=== PATIENT | male | born 1945 | race Caucasian/White ===

== ENCOUNTER → 2021-05-18 11:02 | Outpatient (REF) | payer MEDICARE, SELFPAY | LOC: ANHLAB 11:02 | PROVIDERS: PCP Internal Medicine; Visit Provider Nurse Practitioner | DX: D22.9 Melanocytic nevi, unspecified (principal) | CPT/HCPCS: 88305 ==

== ENCOUNTER → 2021-12-30 10:42 | Outpatient (REF) | payer MEDICARE, SELFPAY | LOC: ANHLAB 10:42 | PROVIDERS: PCP Internal Medicine; Visit Provider Nurse Practitioner | DX: L98.9 Disorder of the skin and subcutaneous tissue, unspecified (principal) | CPT/HCPCS: 88305 ==

== ENCOUNTER 2022-02-04 00:30 | Day surgery (SDC) | payer MEDICARE, SELFPAY ==
[2022-01-24 15:54] VITALS: BMI 37.6
[2022-02-04 09:10] VITALS: BP 150/99; PULSE 89; RESP 18; TEMP 36.6; O2SAT 96; BMI 38.0
[2022-02-04] MEDS: LACTATED RINGERS 1,000 ML 150 ML IV CONT (09:42)
--- NOTE | 2022-02-04 09:59 | PM.IMHP ---
H&P: HPI History of Present Illness Date/Time: 02/04/22 09:59 Chief Complaint: Neoplasia screening. Narrative: This is a 76-year-old white male patient referred for colonoscopy. Patient states that his current weight appetite and bowel movements are normal. Patient denies abdominal pain. He has had no bleeding. Family history is noncontributory. In 2008 patient had a benign hyperplastic colon polyp removed. Most recent colonoscopy 2016 was unremarkable. Patient presents today on referral for neoplasia screening colonoscopy. Patient reports that he has a history of coronary artery disease. He recently had a screening echocardiogram for surveillance. Family history is noncontributory. Review of Systems Review of Systems: Review of systems is noncontributory. [facility] Family History Family History Father Malignant neoplasm of prostate Patient's father is Mother Family history of malignant neoplasm of breast in first degree relative Patient's mother is Sibling Family history of malignant neoplasm of breast in first degree relative Family history of malignant melanoma Family history of malignant neoplasm of skin Other Cerebrovascular accident Family history of cardiovascular disease Family history of kidney disease Hypertension Social History Social History Smoking status: Never smoker Second hand tobacco smoke exposure: No Alcohol intake: current Substance use: never Substance use type: does not use Living arrangements: with family Spiritual care concerns: No Meds Home Medications and Allergies Home Medications Medication Instructions Recorded Confirmed Type cholecalciferol (vitamin D3) 50 50 mcg PO DAILY 08/13/19 02/04/22 History mcg (2,000 unit) capsule multivitamin (Multiple Vitamins) 1 tablet PO DAILY 08/13/19 02/04/22 History nitroglycerin 0.4 mg sublingual 0.4 mg sublingual Q5M PRN Angina 08/13/19 02/04/22 History tablet potassium gluconate 595 mg (99 mg) 1,190 mg PO DAILY 08/13/19 02/04/22 History tablet carvedilol 12.5 mg tablet 12.5 mg PO Q12H 01/04/21 02/04/22 History chlordiazepoxide HCl 10 mg capsule 10 mg PO Q8H PRN anxiety #270 caps 05/18/21 02/04/22 Rx lisinopril 40 mg tablet 40 mg PO DAILY #90 tabs 12/06/21 05/27/22 Rx simvastatin 40 mg tablet 40 mg PO DAILY #90 tabs 08/16/21 02/04/22 Rx imipramine HCl 10 mg tablet 20 mg PO .hs #180 tabs 11/14/21 02/04/22 Rx apixaban 5 mg tablet (Eliquis) 5 mg PO BID 01/07/22 02/04/22 History aspirin 81 mg tablet,delayed 81 mg PO DAILY 01/07/22 02/04/22 History release (Adult Aspirin Regimen) sodium sul 1.479 gram-potas ch See Rx Instructions PO .COMPLEX 01/18/22 02/04/22 Rx 0.188 gram-magnes sul 0.225 gram #24 tabs tablet (Sutab) magnesium oxide 500 mg PO DAILY 01/24/22 02/04/22 History Allergies Allergy/AdvReac Type Severity Reaction Status Date / Time sulfamethoxazole Allergy Intermediate HIVES Verified 02/04/22 09:19 trimethoprim Allergy Mild Rash Verified 02/04/22 09:19 prednisone AdvReac Severe Cramping Verified 02/04/22 09:19 of the Muscles Vital Signs Vital Signs - 24 hr 02/04/22 09:10 Temperature 97.8 F Pulse Rate 89 Respiratory Rate 18 Blood Pressure 150/99 H Pulse Oximetry 96 Oxygen Delivery Room Air Exam Narrative: Physical exam reveals patient to be alert. Vital signs stable. HEENT exam is unremarkable. Patient is anicteric. Lungs are clear to auscultation and percussion. Heart is without murmur or extra sounds. Abdominal exam bowel sounds are present soft nontender with no organomegaly. Digital external rectal exam is normal. Assessment and Plan Assessment and plan (1) Encounter for screening colonoscopy: Code(s): Z12.11 - Encounter for screening for malignant neoplasm of colon Status: Acute
--- NOTE | 2022-02-04 10:14 | WPDANESEPPF ---
Anes - Initial Pre Proc Eval Procedure: Operation Date: 02/04/22 10:30 Proposed Procedures p Screening Colonoscopy - Ross Nettles MD Date/Time: 02/04/22 10:14 Surgeon: Ross Nettles MD Pre Op Diagnosis: hx of colon polyps Patient Data Age: 76 Gender: M Height: 1.8 m Weight: 123.7 kg Last Vital Signs Temp 97.8 F 02/04/22 09:10 Pulse 89 02/04/22 09:10 Resp 18 02/04/22 09:10 BP 150/99 H 02/04/22 09:10 Pulse Ox 96 02/04/22 09:10 O2 Del Method Room Air 02/04/22 09:10 Allergies Allergy/AdvReac Type Severity Reaction Status Date / Time sulfamethoxazole Allergy Intermediate HIVES Verified 02/04/22 09:19 trimethoprim Allergy Mild Rash Verified 02/04/22 09:19 prednisone AdvReac Severe Cramping Verified 02/04/22 09:19 of the Muscles Home Medications Medication Instructions Recorded Confirmed Type cholecalciferol (vitamin D3) 50 50 mcg PO DAILY 08/13/19 02/04/22 History mcg (2,000 unit) capsule multivitamin (Multiple Vitamins) 1 tablet PO DAILY 08/13/19 02/04/22 History nitroglycerin 0.4 mg sublingual 0.4 mg sublingual Q5M PRN Angina 08/13/19 02/04/22 History tablet potassium gluconate 595 mg (99 mg) 1,190 mg PO DAILY 08/13/19 02/04/22 History tablet carvedilol 12.5 mg tablet 12.5 mg PO Q12H 01/04/21 02/04/22 History chlordiazepoxide HCl 10 mg capsule 10 mg PO Q8H PRN anxiety #270 caps 05/18/21 02/04/22 Rx lisinopril 40 mg tablet 40 mg PO DAILY #90 tabs 08/16/21 02/04/22 Rx simvastatin 40 mg tablet 40 mg PO DAILY #90 tabs 08/16/21 02/04/22 Rx imipramine HCl 10 mg tablet 20 mg PO .hs #180 tabs 11/14/21 02/04/22 Rx apixaban 5 mg tablet (Eliquis) 5 mg PO BID 01/07/22 02/04/22 History aspirin 81 mg tablet,delayed 81 mg PO DAILY 01/07/22 02/04/22 History release (Adult Aspirin Regimen) sodium sul 1.479 gram-potas ch See Rx Instructions PO .COMPLEX 01/18/22 02/04/22 Rx 0.188 gram-magnes sul 0.225 gram #24 tabs tablet (Sutab) magnesium oxide 500 mg PO DAILY 01/24/22 02/04/22 History Patient hx anesthesia problems: none Family hx anesthesia problems: none Results Review: All pre-operative results and documents have been reviewed as part of the pre-operative evaluation. [facility] Family History Family History Father Malignant neoplasm of prostate Patient's father is Mother Family history of malignant neoplasm of breast in first degree relative Patient's mother is Sibling Family history of malignant neoplasm of breast in first degree relative Family history of malignant melanoma Family history of malignant neoplasm of skin Other Cerebrovascular accident Family history of cardiovascular disease Family history of kidney disease Hypertension Social History Social History Smoking status: Never smoker Second hand tobacco smoke exposure: No Alcohol intake: current Substance use: never Substance use type: does not use Living arrangements: with family Spiritual care concerns: No Anes - Eval Final PreProcedure Day of Procedure 02/04/22 10:14 Patient weight: obese Heart: regular rate and rhythm Lungs: clear to auscultation Airway: Mallampati scale class II Neurological: alert and oriented Last oral intake: >/= 8 hours ASA classification: III Emergent: no Anesthetic plan: proceed Anesthesia type and monitoring: general GIVS and standard monitoring Results Review: All pre-operative results and documents have been reviewed as part of the pre-operative evaluation. Informed Consent: The patient's anesthetic plan and its attendant risks and benefits were discussed with the patient/family/POA. Questions were solicited and answers provided to the satisfaction of the patient/family/POA.
[2022-02-04 10:26] VITALS: BP 130/82; PULSE 76; RESP 25; O2SAT 95
[2022-02-04 10:36] VITALS: BP 119/76; PULSE 77; RESP 20; O2SAT 96
[2022-02-04 10:46] VITALS: BP 118/85; PULSE 71; RESP 20; O2SAT 96
== END 2022-02-04 10:53 | disposition home or self-care (01) ==
PROVIDERS: PCP Internal Medicine; Visit Provider Internal Medicine Gastroenterology
PROC: 0DJD8ZZ Inspection of Lower Intestinal Tract, Via Natural or Artificial Opening Endoscopic (ICD-10-PCS; CPT 45378; principal; 2022-02-04 10:30)
DX: Z12.11 Encounter for screening for malignant neoplasm of colon (principal); K64.8 Other hemorrhoids; E66.9 Obesity, unspecified; Z68.38 Body mass index [BMI] 38.0-38.9, adult; I25.10 Atherosclerotic heart disease of native coronary artery without angina pectoris
CPT/HCPCS: G0121; J2704; J7120

== ENCOUNTER 2022-06-30 07:00 | Outpatient (NON) | payer MEDICARE, SELFPAY | END 2022-06-30 07:01 | disposition home or self-care (01) | PROVIDERS: PCP Internal Medicine; Visit Provider Nurse Practitioner | DX: C44.719 Basal cell carcinoma of skin of left lower limb, including hip (principal) | CPT/HCPCS: 88305 ==

== ENCOUNTER → 2022-07-18 11:27 | Outpatient (CLI) | payer MEDICARE, SELFPAY ==
--- NOTE | ~2022-07-18 | XR_ITS ---
EXAMINATION: XR chest 2V DATE: 07/18/2022 11:39 INDICATION: 2 weeks of cough TECHNIQUE: frontal and lateral views of the chest were obtained. COMPARISON: Chest radiograph dated 12/24/2018 FINDINGS: The lungs are clear with no focal airspace opacities, pulmonary edema, pleural effusion or pneumothor ax. The cardiomediastinal silhouette is normal. No bridging osteophytes anteriorly across much of the visualized mid to lower thoracic spine which could be related to either diffuse idiopathic skeletal hyperostosis (DISH) or ankylosing spondylitis. IMPRESSION: 1. No acute cardiopulmonary disease. Reviewed, dictated and finalized at location A. [employer]
== END ==
PROVIDERS: PCP Internal Medicine; Visit Provider Internal Medicine
DX: R05.9 Cough, unspecified (principal)
CPT/HCPCS: 71046

== ENCOUNTER 2022-08-01 14:01 | Outpatient (NON) | payer MEDICARE, SELFPAY | END 2022-08-01 14:02 | disposition home or self-care (01) | LOC: ANHLAB 14:01 | PROVIDERS: PCP Internal Medicine; Visit Provider Nurse Practitioner | DX: C44.719 Basal cell carcinoma of skin of left lower limb, including hip (principal) | CPT/HCPCS: 88305; 88331 ==

== ENCOUNTER → 2023-03-20 10:55 | Outpatient (CLI) | payer MEDICARE, SELFPAY ==
--- NOTE | ~2023-03-20 | XR_ITS ---
AP and lateral views of the right hip Clinical history: Pain Findings: No acute fracture or dislocation is seen. Osseous alignment is anatomic. There is mild dege nerative change of the right hip joint.. Soft tissues are unremarkable. Impression: Mild degenerative change of the right hip joint. Reviewed, dictated and finalized at [facility]. Impression: Mild degenerative change of the right hip joint.
== END ==
PROVIDERS: PCP Nurse Practitioner Family; Visit Provider Nurse Practitioner Family
DX: M25.551 Pain in right hip (principal)
CPT/HCPCS: 73502

== ENCOUNTER → 2023-03-30 10:29 | Outpatient (CLI) | payer MEDICARE, SELFPAY ==
--- NOTE | ~2023-03-30 | MR_ITS ---
MRI of the lumbar spine Clinical History: Radiculopathy Technique: Axial T2-weighted images, and sagittal T1-weighted, T2-weighted, and T2 fat-sat images wer e acquired. Findings: There is no acute fracture or subluxation of the lumbar spine. Vertebral bodies maintain no rmal height and alignment. Intraosseous hemangioma present in the L5 vertebral body. At L1-L2, there is moderate degenerative disc narrowing without significant disc bulge or herniation. There is mild facet arthropathy. No central canal stenosis or definite neural foraminal narrowing. At L2-L3, there is mild degenerative disc narrowing. There is minimal disc bulge with mild to moderat e facet arthropathy. No central canal stenosis. There is minimal bilateral neural foraminal narrowing . At L3-L4, there is diffuse disc bulge and advanced facet arthropathy, which result in severe spinal c anal stenosis/thecal sac compression focally. There is moderate to advanced left neural foraminal isela rowing, and severe right neural foraminal narrowing. At L4-L5, diffuse disc bulge and severe facet arthropathy result in severe spinal canal stenosis/thec al sac compression. There is associated moderate bilateral neural foraminal narrowing, left worse mitchell n right. At L5-S1, there is minimal disc bulge with severe facet arthropathy. No spinal canal stenosis or defi nite neural foraminal narrowing. Paravertebral soft tissues are unremarkable. Impression: Severe degenerative spondylosis at L3-L4 and L4-L5, as detailed above. Mild degenerative changes the remainder of the lumbar spine, as above. Reviewed, dictated and finalized at [facility]. Impression: Severe degenerative spondylosis at L3-L4 and L4-L5, as detailed above. Mild degenerative changes the remainder of the lumbar spine, as above.
== END ==
PROVIDERS: PCP Internal Medicine; Visit Provider Nurse Practitioner Family
DX: M54.16 Radiculopathy, lumbar region (principal); M43.06 Spondylolysis, lumbar region
CPT/HCPCS: 72148

== ENCOUNTER 2025-01-14 00:17 | Day surgery (SDC) | payer MEDICARE, SELFPAY ==
[2024-12-27 11:00] VITALS: BMI 39.0
--- NOTE | 2024-12-27 11:14 | PC.NURSE ---
Report to the Outpatient Waiting Room, entrance under the green pavilion located off [facility], at time __0850am on date __01/14/25 . Planned Procedure Time: _10:50am .? Time changes happen often and if your time is changed the preop area will call you the afternoon before. - You and your visitor will be asked to self-screen and do not enter if you have any COVID symptoms. Please call surgeon if you need to reschedule. - A mask is optional within the hospital at this time. Patients may have No food or drink from midnight until time of surgery and no smoking, or chewing tobacco (or any form of nicotine). No chewing gum, candy or mints. Take only the following medications with a SIP of water on the morning of surgery: ____Amlodipine and Coreg, and Chlordiazepoxide if needed DO NOT STOP ANY OF YOUR OTHER PRESCRIPTION MEDICATIONS PRIOR TO SURGERY EXCEPT THE FOLLOWING Hold all vitamins and supplements for 3 days per anesthesiologist.Date to take last dose____01/10/25 Medications to discontinue per physician BABY ASPIRIN for 5 days prior and [address] JULES Date to take last dose 01/08/25 Please no make-up, nail portuguese, hairspray, perfume, deodorant, or body powder the day of surgery.? No jewelry (including any body piercings) or valuables the day of surgery, leave them at home.? Please take a shower or bath the night before, or the morning of, surgery with an antibacterial soap.? Wear comfortable, loose fitting clothing.? - Jewelry must be removed prior to entering the operating room.? Rings and piercings that are not removed may be cut off. - The hospital will not accept responsibility for valuables.? - Please leave all valuables, including medications, at home the day of surgery. If you are going home after surgery, a licensed jitney driver must drive you home.? - NO public transportation without another adult if you receive anesthesia. - We recommend that an adult stay with you for 24 hours following discharge. - We also recommend that you do not drive, make important decision, drink alcoholic beverages, or take any drugs that were not prescribed by your health care provider for at least 24 hours after your discharge time. Follow any additional instructions given to you from your surgeon. Telephone instructions given to __Patient and asked if any additional questions and then verbalized understanding. Patient advised to call surgeon office or pre surgery nurse liaison [phone] if any additional questions.
[2025-01-14] VITALS (7 sets, daily range): BP systolic 119–141; BP diastolic 74–90; PULSE 67–82; RESP 10–17; TEMP 36.6–37; O2SAT 97–100
--- NOTE | ~2025-01-14 | XR_ITS ---
EXAMINATION: XR fluoroscopy no charge DATE: 01/14/2025 10:30 CDT INDICATION: MILD CONSUELO L3-4,L4-5 . TECHNIQUE: 12 fluoroscopic images and one cine clip of the lumbar spine were obtained during bilatera l L3-4 and L4-5 minimally invasive lumbar decompression, performed by Morales Westfall MD. I was not present during the procedure. Fluoroscopy exposure time was 4 minutes 13 seconds. Air Kerma 303.57 mG y. DAP 36.398 mGym2. COMPARISON: None FINDINGS/IMPRESSION: Fluoroscopic documentation of bilateral L3-4 and L4-5 minimally invasive lumbar decompression. Please refer to the operative note for complete procedural details. Reviewed, dictated and finalized at location K.
--- OUTSIDE RECORDS SUMMARY | 2025-01-14 00:20 | XMS_ITS | Encounter Summary ---
Author Organization [facility] Address [address] [address] Care Team Providers Care Cheese Wrapper Name Role Phone Moises Strickland Primary Care Provider [phone] Encounter Details Date Type Department Care Team (Late st Contact Info) Description 01/09/2019 Lab Requisition [facility] Care D[facility] [address] [place] [id number] Markus Schroeder MD [address] [id number] Social History Tobacco Use Types Packs/Day Years Used Date Smoking Tobacco: Never Smokeless Tobacco: Never Alcohol Use Standard Drinks/Week Comments Yes 0 (1 standard drink = 0.6 oz pur e alcohol) Sex and Gender Information Value Date Recorded Sex Assigned at Not on file 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 [employer] Gender Identity Not on file Sexual Orientation Not on file documented as of this encounter Plan of Treatment Not on file documented as of this encounter Procedures Procedure Name Priority Date/Time Associated Diagnosis Comments DERMPATH SLIDE CONSULT Routine 01/09/2019 12:00 AM CDT documented in this encounter Results * DERMPATH SLIDE CONSULT (01/09/2019 12:00 AM CDT) Case Report Dermatopathology Report Case: [id number] Authorizing Provider: Markus Schroeder MD Collected: 01/09/2019 12:00 AM Pathologist: Shanel Cochran MD Received: 01/09/2019 08:37 AM Specimen: Slide(s), Posterior scalp, OSC# [id number] 12:31 PM T DERMATOPATHOLOGY LABORATORY Final Diagnosis Specimen A. 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 Markus Schroeder, a consult will be performed on 4 slide(s) and 1 block(s) labeled [id number]. Melanoma in situ, extending to peripheral margin. All slides returned. Any additional sections, special stains or immunohistochemical stains performed by our laboratory will be kept here on file. 12:31 PM T DERMATOPATHOLOGY LABORATORY Microscopic Description Specimen A. Slide(s), Posterior scalp, OSC# [id number]: There is a proliferation of melanocytes distributed in an irregular pattern along the dermal-epidermal junction with single cells predominating. Significant extension down the follicular epithelium and focal areas of confluence are present. This melanocytic proliferation is highlighted on the provided Melan-A stain. This lesion is present at the margin of the specimen. 12:31 PM T DERMATOPATHOLOGY LABORATORY Disclaimer An external and internal positive and negative controls are appropriate for the histochemical, immunohistochemical and immunofluorescence stain(s) in this case (if any), except where stated explicitly. The performance characteristics of the stain(s) cited in this report were developed and its performance characteristic determined by the Dermatopathology Laboratory at [facility], directed by Dr. Lida Cortez. These tests need not be, and therefore are not, approved by the [place] Food and Drug Administration. The tests are used for clinical purposes. Billing Codes Specimen Charges Stain Charges 98145 1 12:31 PM CDT DERMATOPATHOLOGY LABORATORY Embedded Images 12:31 PM CDT DERMATOPATHOLOGY LABORATORY Pathology/Cytolog y SLIDE / Unknown 01/09/2019 01/09/2019 8:37 AM CDT us Markus Schroeder MD LAB - PATHOLOGY/CYTOLOGY ORDER EJ Final Result DERMATOPATHOLOGY LABORATORY [facility] - Department of Dermatology [address] [place] [address], [facility] [phone] documented in this encounter Visit Diagnoses Not on filedocumented in this encounter Care Teams Cheese Wrapper Relationship Specialty Start Date End Date Moises Strickland DO [address] [facility] [address] [place] [address] PCP - General 04/10/17 documented as of this encounter
--- OUTSIDE RECORDS SUMMARY | 2025-01-14 00:20 | XMS_ITS | Encounter Summary ---
Author Organization [facility] Address [facility] [place] [address] Care Team Providers Care Director Peoples[employer] Name Role Phone Moises Strickland MD Primary Care Provider [phone] Sebastian Nur DO Primary Care Provider [phone] Encounter Details Date Type Department Care Team (Late Contact Info) Description 02/02/2022 [employer] Message Enc [facility] [address] [address] [employer], [facility] Provider echo results Social History Tobacco Use Types Packs/Day Years Used Date Smoking Tobacco: Former Cigarettes Smokeless Tobacco: Never Alcohol Use Standard Drinks/Week Comments Yes 0 (1 standard drink = 0.6 oz pur e alcohol) occasionally AUDIT-C Answer Date Recorded Q1: How often do you have a drink containing alc ohol? Monthly or less 07/13/2020 Average Number of Drinks Not on file 020 Frequency of Binge Drinking Not on file 10/2019 Sex and Gender Information Value Date Recorded Sex Assigned at Not on file Legal Sex Male 4:39 PM CDT Gender Identity Not on file Sexual Orientation Not on file COVID-19 Exposure Response Date Recorded In the last 10 days, have yo u been in contact with someone who was confirmed or suspected to have Coronavirus/COVID-19? No / Unsure 02/01/2022 1:48 PM CDT documented as of this encounter Plan of Treatment Upcoming Encounters Date Type Department Care Team (Late Contact Info) Description 03/03/2025 10:30 AM CDT Office Visit [facility] [place] [address] Eboni Kidd MD [address] [facility] [address] [place] [address] documented as of this encounter Visit Diagnoses Not on filedocumented in this encounter Care Teams Director [employer]oplesoft Relationship Specialty Start Date End Date Moises Strickland MD [address] [place] [address] [place], [place] [id number] PCP - General INTERNAL MEDICINE 06/08/20 03/10/24 Sebastian Nur DO [address] [facility] [address] [employer], [place] [id number] PCP - General INTERNAL MEDICINE 03/11/24 documented as of this encounter
--- OUTSIDE RECORDS SUMMARY | 2025-01-14 00:20 | XMS_ITS | Encounter Summary ---
Author Organization [facility] Address [address] [facility] [place] [address] Care Team Providers Care Automotive Production Worker Name Role Phone Moises Strickland Primary Care Provider [phone] Encounter Details Date Type Department Care Team (Late st Contact Info) Description 07/19/2018 Lab Requisition [facility] Care DermPath Lab [address] [facility] [place] [id number] Matias Curry MD [place] [address] Social History Tobacco Use Types Packs/Day Years Used Date Smoking Tobacco: Never Smokeless Tobacco: Never Alcohol Use Standard Drinks/Week Comments Yes 0 (1 standard drink = 0.6 oz pur e alcohol) Sex and Gender Information Value Date Recorded Sex Assigned at Not on file Legal Sex Male 5:27 PM CENTRAL STORES ATTENDANT Gender Identity Not on file Sexual Orientation Not on file documented as of this encounter Plan of Treatment Not on file documented as of this encounter Procedures Procedure Name Priority Date/Time Associated Diagnosis Comments DERMATOPATHOLOGY Routine 07/18/2018 12:0 0 AM CENTRAL STORES ATTENDANT documented in this encounter Results * DERMATOPATHOLOGY (07/18/2018 12:00 AM CENTRAL STORES ATTENDANT) Case Report Dermatopathology Report Case: [id number] Authorizing Provider: Matias Curry MD Collected: 07/18/2018 12:00 AM Pathologist: Bessy Hugo MD Received: 07/19/2018 12:03 PM Specimens: A) - Skin, left ant lat base of neck B) - Skin, left radial dist ext FA C) - Skin, right mid parasonial back 1:57 PM [facility] DERMATOPATHOLOGY [facility]ORATORY Addendum 1 A MART-1/Melan A was performed at the time of diagnosis on Specimen C and highlights the lesion and pagetoid spread. 1:57 PM CENTRAL STORES ATTENDANT DERMATOPATHOLOGY LABORATORY Addendum electronically signed by Bessy Hugo MD on 07/26/2018 at 1:57 PM Final Diagnosis Specimen A. SKIN, left ant lat base of neck: SEBORRHEIC KERATOSIS, MACULAR (L82.1) (see microscopic description) Specimen B. SKIN, left radial dist ext FA: BASAL CELL CARCINOMA, NODULAR TYPE, ERODED (C44.619) Specimen C. SKIN, right mid parasonial back: MALIGNANT MELANOMA, LENTIGINOUS TYPE (C43.59) PRESENT AT MARGIN (see microscopic description and synoptic report) 1:57 PM [facility] DERMATOPATHOLOGY [facility]ORATORY Clinical History A: R/O dys nevus, lentigo. B: R/O SCC, HAK. C: R/O dys nevus, lentigo. 1:57 PM [facility] DERMATOPATHOLOGY [facility]ORAT[facility] Gross Description Specimen A: Received is one formalin filled container labeled with the patient's name and designated left ant lat base of neck. The specimen consists of a shave biopsy measuring [id number]. Jar 0. Specimen B: Received is one formalin filled container labeled with the patient's name and designated left radial dist ext FA. The specimen consists of a shave biopsy measuring [id number]. Jar 0. Specimen C: Received is one formalin filled container labeled with the patient's name and designated right mid parasonial back. The specimen consists of a shave biopsy measuring [id number]. Jar 0. 1:57 PM CENTRAL STORES ATTENDANT DERMATOPATHOLOGY LABORATORY Microscopic Description Specimen A. SKIN, left ant lat base of neck: Sections show a relatively broad, flat proliferation of small keratinocytes. The surface is gently papillated, and there is increased basilar pigmentation. MART-1/Melan-A staining highlights regular periodicity of melanocytes along the basal layer of the epidermis. Specimen B. SKIN, left radial dist ext FA: The epidermis is eroded. Within the dermis there are aggregates of basaloid cells with a high nuclear to cytoplasmic ratio and peripheral palisading. Specimen C. SKIN, right mid parasonial back: There is a proliferation of melanocytes distributed in an irregular pattern along the dermal-epidermal junction with single cells predominating, extension down the follicular epithelium, and focal areas of confluence. In the dermis there are irregular nests of cytologically similar melanocytes. This lesion is present at the margin of the specimen wit in situ disease and invasive disease seen at the a lateral margin and in situ disease seen at the base of the specimen. 8 1:57 PM [facility] DERMATOPATHOLOGY [facility]ORATORY Disclaimer An external and internal positive and negative controls are appropriate for the histochemical, immunohistochemical and immunofluorescence stain(s) in this case (if any), except where stated explicitly. The performance characteristics of the stain(s) cited in this report were developed and its performance characteristic determined by the Dermatopathology Laboratory at [facility]. These tests need not be, and therefore are not, approved by the [place] Food and Drug Administration. The tests are used for clinical purposes. Billing Codes Specimen Charges Stain Charges 05233 51983 12702 1 1 1 12503 23490 1 1 8 1:57 PM [facility] DERMATOPATHOLOGY [facility]OR[facility] Embedded Images 8 1:57 PM [facility] DERMATOPATHOLOGY [facility]OR[facility]ORY Synoptic Report MELANOMA OF THE SKIN: Biopsy (Melanoma Bx - C) SPECIMEN Procedure: Biopsy, shave Specimen Laterality: Right TUMOR Tumor Site: Skin of trunk: right mid paraspinal back : Histologic Type: Lentigo maligna melanoma Maximum Tumor (Breslow) Thickness in Millimeters (mm): At least: 0.4 Millimeters (mm) : Tumor is present at the surgical margin; therefore, the final depth may exceed the current one. Tumor Extent: Macroscopic Satellite Nodule(s): Not identified Ulceration: Not identified Anatomic (Joshua) Level: II (melanoma present in but does not fill and expand papillary dermis) Accessory Findings: Mitotic Rate: None identified Microsatellite(s): Not identified Lymphovascular Invasion: Not identified Neurotropism: Not identified Tumor-Infiltrating Lymphocytes: Present, nonbrisk Tumor Regression: Not identified MARGINS: Peripheral Margins: Involved by invasive melanoma Deep Margin: Uninvolved by invasive melanoma PATHOLOGIC STAGE CLASSIFICATION (pTNM, AJCC 8th Edition): Primary Tumor (pT): pT1a 8 1:57 PM CENTRAL STORES ATTENDANT DERMATOPATHOLOGY LABORATORY Pathology/Cytology TISSUE SPECIMEN FROM SKIN / Unknown 07/18/2018 07/19/2018 12:03 PM CENTRAL STORES ATTENDANT Miscellaneous samples (specimen) TISSUE SPECIMEN FROM SKIN / Unknown 07/18/2018 07/19/2018 12:03 PM CENTRAL STORES ATTENDANT Miscellaneous samples (specimen) TISSUE SPECIMEN FROM SKIN / Unknown 07/18/2018 07/19/2018 12:03 PM CENTRAL STORES ATTENDANT us Matias Curry MD LAB - PATHOLOGY/CYTOLOGY ORD ERABLES Edited Result - Final DERMATOPATHOLOGY LABORATORY [facility] - Department of Dermatology [address] [place] [address] 5th Floor Lab [address] [phone] documented in this encounter Visit Diagnoses Not on filedocumented in this encounter Care Teams Automotive Production Worker Relationship Specialty Start Date End Date Moises Strickland DO [address] [facility] [address] [place] [address] PCP - General 04/10/17 documented as of this encounter
--- OUTSIDE RECORDS SUMMARY | 2025-01-14 00:20 | XMS_ITS | Encounter Summary ---
Author Organization [facility] Address [address] [facility] [place] [address] Care Team Providers Care Standard Machine Stitcher Name Role Phone Moises Strickland Primary Care Provider [phone] Encounter Details Date Type Department Care Team (Late st Contact Info) Description 08/30/[address] [facility] Care DermPath Lab [address] [facility] [place] [phone] Matias Curry MD [place] [address] Social History Tobacco Use Types Packs/Day Years Used Date Smoking Tobacco: Never Smokeless Tobacco: Never Alcohol Use Standard Drinks/Week Comments Yes 0 (1 standard drink = 0.6 oz pur e alcohol) Sex and Gender Information Value Date Recorded Sex Assigned at Not on file Legal Sex Male 5:27 PM LINUX KERNEL DEVELOPER Gender Identity Not on file Sexual Orientation Not on file documented as of this encounter Plan of Treatment Not on file documented as of this encounter Procedures Procedure Name Priority Date/Time Associated Diagnosis Comments DERMATOPATHOLOGY Routine 08/29/2018 12:0 0 AM LINUX KERNEL DEVELOPER documented in this encounter Results * DERMATOPATHOLOGY (08/29/2018 12:00 AM LINUX KERNEL DEVELOPER) Case Report Dermatopathology Report Case: [id number] Authorizing Provider: Matias Curry MD Collected: 08/29/2018 12:00 AM Pathologist: Bessy Hugo MD Received: 08/30/2018 12:40 PM Specimen: Skin, left upper chest below clavicle 8 12:15 PM [facility] DERMATOPATHOLOGY LABORATORY Final Diagnosis Specimen A. SKIN, left upper chest below clavicle: JUNCTIONAL MELANOCYTIC PROLIFERATION; NOT PRESENT AT MARGIN (D48.5) DERMAL SCAR (L90.5) (see microscopic description and comment) 8 12:15 PM [facility] DERMATOPATHOLOGY LABORATORY Clinical History Bx proven junctional melanocytic proliferation, [id number]. Check margins. 12:15 PM [facility] DERMATOPATHOLOGY [facility]ORATORY Gross Description Specimen A: Received is one formalin filled container labeled with the patient's name and designated left upper chest below clavicle.The specimen consists of an ellipse measuring [id number] and is oriented with the notch at the 12 o'clock position labeled on the requisition as 12 o'clock. The 12 to 6 o'clock margin is inked green. The 6 o'clock to 12 o'clock margin is inked black. The 12 o'clock tip is submitted in cassette 1. The 6 o'clock tip is submitted in cassette 2. The remainder of the ellipse is serially sectioned and submitted in cassettes 3-4. Jar 0. 12:15 PM [facility] DERMATOPATHOLOGY [facility]ORATORY Microscopic Description Specimen A. SKIN, left upper chest below clavicle: There are fibroblasts and collagen bundles oriented parallel to the skin surface with elongated blood vessels, some of which are oriented perpendicular to the skin surface consistent with a scar from the prior procedure. Lateral to the dermal scar there is a focal junctional melanocytic proliferation. There is a slight lentiginous proliferation of bland melanocytes between irregular nests. This lesion is not present at the sampled margin of the specimen. COMMENT: The prior case was reviewed in conjunction. While the melanocytic proliferation may represent focal residual lesion, I also considered an incident new lesion, which I favor to be benign based on the cytology. The proliferation appears to be excised in the plane of section examined. 12:15 PM [facility] DERMATOPATHOLOGY LABORATORY Disclaimer An external and internal positive and negative controls are appropriate for the histochemical, immunohistochemical and immunofluorescence stain(s) in this case (if any), except where stated explicitly. The performance characteristics of the stain(s) cited in this report were developed and its performance characteristic determined by the Dermatopathology Laboratory at [facility]. These tests need not be, and therefore are not, approved by the [place] Food and Drug Administration. The tests are used for clinical purposes. Billing Codes Specimen Charges Stain Charges 99290 1 8 12:15 PM LINUX KERNEL DEVELOPER DERMATOPATHOLOGY LABORATORY Embedded Images 8 12:15 PM LINUX KERNEL DEVELOPER DERMATOPATHOLOGY LABORATORY Pathology/Cytolog y TISSUE SPECIMEN FROM SKIN / Unknown 08/29/2018 08/30/2018 12:40 PM LINUX KERNEL DEVELOPER us Matias Curry MD LAB - PATHOLOGY/CYTOLOGY ORD ERABLES Final Result DERMATOPATHOLOGY LABORATORY [facility] - Department of Dermatology [address] [place] [address], 5th Floor Lab [address] [phone] documented in this encounter Visit Diagnoses Not on filedocumented in this encounter Care Teams Standard Machine Stitcher Relationship Specialty Start Date End Date Moises Strickland DO [address] [facility] [address] [facility] [address] [place] [address] PCP - General 04/10/17 documented as of this encounter
--- OUTSIDE RECORDS SUMMARY | 2025-01-14 00:20 | XMS_ITS | Encounter Summary ---
Author Organization [facility] Address [facility] [place] [address] Care Team Providers Care Health Program Specialist Name Role Phone Moises Strickland MD Primary Care Provider [phone] Sebastian Nur DO Primary Care Provider [phone] Encounter Details Date Type Department Care Team (Late Contact Info) Description 12/30/2021 Visible Measures Message Enc [facility] [address] [address] [employer], [facility] Provider doppler results Social History Tobacco Use Types Packs/Day [...] suspected to have Coronavirus/COVID-19? No / Unsure 12/30/2021 12:14 PM CDT documented as of this encounter Plan of Treatment Upcoming Encounters Date Type Department Care Team (Late Contact Info) Description 03/03/2025 10:30 AM CDT Office Visit [facility] [address] [facility] [place] [address] Eboni Kidd MD [address] [facility] [address] [place] [address] documented as of this encounter Visit Diagnoses Not on filedocumented in this encounter Care Teams Health Program Specialist Relationship Specialty Start Date End Date Moises Strickland MD [address] [place] [address] [place], [place] [phone] PCP - General INTERNAL MEDICINE 06/08/20 03/10/24 Sebastian Nur DO [address] [facility] [address] [place], [place] [id number] PCP - General INTERNAL MEDICINE 03/11/24 documented as of this encounter
--- OUTSIDE RECORDS SUMMARY | 2025-01-14 00:20 | XMS_ITS | Clinical Summary ---
Author Organization [facility] Address [address] [place] [address] Care Team Providers Care Midwife Name Role Phone Moises Strickland DO Primary Care Provider [phone] Source Comments [facility],non-owned Affiliates and Associated Physician Practices is amultiple site organization consisting of ambulatory clinics and hospital sitesin [place], [place], [place] and [place]. This disclosure is being madepursuant to the Care Everywhere program and may not contain all information available regarding this patient. Last updated 18.[facility] Allergies Active Allergy Reactions Criticality Noted Date Comments Sulfamethoxazole W-Trimethoprim Rash Medium 04/13 Medications * Be aware that medications may not be up to date on this document. Alwaysverify current medications with the patient. nitroGLYCERIN (NITROSTAT) 0.4 MG tablet Dissolve 0.4 mg under the tongue q5min PRN (Chest Pain). 05/10/2017 Active omeprazole (PRILOSEC) 20 MG capsule Take 20 mg by mouth BID. 05/10/2017 Active aspirin (ASPIRIN) 81 MG tablet Take 81 mg by mouth DAILY. 05/10/2017 Active triamcinolone acetonide (KENALOG) 0.1 % cream 1 04/10/2017 Active potassium gluconate 595 (99 K) MG tablet Take 1 tablet by mouth BID. 05/10/2017 Active simvastatin (ZOCOR) 40 MG tablet 3 04/10/2017 Active chlordiazePOXID E (LIBRIUM) 10 MG capsule Take 10 mg by mouth. 05/10/2017 Active Vitamin D3, cholecalciferol , 2000 UNITS tablet Take 2,000 Units by mouth DAILY. 05/10/2017 Active imipramine (TOFRANIL) 10 MG tablet 1 03/31/2017 Active metoprolol succinate XL 24hr (TOPROL XL) 50 MG tablet 0 02/25/2017 Active lisinopril (PRINIVIL; ZESTRIL) 20 MG tablet Take 20 mg by mouth DAILY. 3 04/10/2017 Active Family History Medical History Relation Name Comments Cancer - Skin, Melanoma Brother Relation Name Status Comments Brother Social History Tobacco Use Types Packs/Day Years Used Date Smoking Tobacco: Never Smokeless Tobacco: Never Alcohol Use Standard Drinks/Week Comments Yes 0 (1 standard drink = 0.6 oz pur e alcohol) Sex and Gender Information Value Date Recorded Sex Assigned at Not on file Legal Sex Male 5:27 PM SHIFT STACKER Gender Identity Not on file Sexual Orientation Not on file Last Filed Vital Signs Vital Sign Reading Time Taken Comments Blood Pressure 134/100 06/07/2017 8:52 AM CDT Pulse 81 06/07/2017 8:52 AM CDT Temperature - - Respiratory Rate - - Oxygen Saturation 97% 06/07/2017 8:52 AM CDT Inhaled Oxygen Concentration - - Weight 117.9 kg (260 lb) 06/07/2017 7:14 AM CDT Height 180.3 cm (5' 11 ) 06/07/2017 7:14 AM CDT Body Mass Index 36.26 06/07/2017 7:14 AM CDT Plan of Treatment Health Maintenance Due Date Last Done Comments DTAP/TDAP/TD VACCINES (1 - Tdap) 1964 PNEUMOCOCCAL VACCINE 50+ (1 of 1 - PCV) 1995 ZOSTER VACCINE (1 of 2) 1995 Respiratory Syncytial Virus (RSV) Vaccine Pt: or over 60 yrs (1 - 1-dose 75+ series) 2020 COVID-19 VACCINE ( - 2023-2 5 season) 2024 DEPRESSION SCREENING 09/11/2024 INFLUENZA VACCINE (Season Ended) 2025 HEPATITIS B VACCINE Aged Out No longe r eligible based on patient's age to complete this topic HIB VACCINE Aged Out No longer eligi ble based on patient's age to complete this topic HPV VACCINE Aged Out No longer eligi ble based on patient's age to complete this topic MENINGOCOCCAL (Group B) VACC INE SHARED DECISION-MAKING Aged Out No longer eligibl e based on patient's age to complete this topic MENINGOCOCCAL GROUPS A/C/Y/W VACCINE Aged Out No longer eligible b ased on patient's age to complete this topic Insurance [facility] MANAGED MEDICARE ADV Care Teams Midwife Relationship Specialty Start Date End Date Moises Strickland DO [address] [facility] [address] [place] [address] PCP - General 04/10/17
--- OUTSIDE RECORDS SUMMARY | 2025-01-14 00:20 | XMS_ITS | Encounter Summary ---
Author Organization [facility] Address [facility] [place] [address] Care Team Providers Care Pet Care Worker Name Role Phone Moises Strickland MD Primary Care Provider [phone] Sebastian Nur DO Primary Care Provider [phone] Encounter Details Date Type Department Care Team (Late st Contact Info) Description 10/05/2020 MyCDLCt Message Enc [facility] [address] [facility] [place] [address] Jim Cortes MD [address] [facility] [address] [place] [address] RE: Medication Questions Social History Tobacco Use Types Packs/Day Years Used Date Smoking Tobacco: Never Smokeless Tobacco: Never Alcohol Use Standard Drinks/Week Comments Yes 0 (1 standard drink = 0.6 oz pur e alcohol) AUDIT-C Answer Date Recorded Q1: How often [...] Encounters Date Type Department Care Team (Late st Contact Info) Description 03/03/2025 10:30 AM CDT Office Visit [facility] [address] [facility] [place] [address] Eboni Kidd MD [address] [facility] [address] [place] [address] documented as of this encounter Visit Diagnoses Not on filedocumented in this encounter Care Teams Pet Care Worker Relationship Specialty Start Date End Date Moises Strickland MD [address] [place] [address] [place] [address] PCP - General INTERNAL MEDICINE 06/08/20 03/10/24 Sebastian Nur DO [address] [facility] [address] [place], [place] [phone] PCP - General INTERNAL MEDICINE 03/11/24 documented as of this encounter
--- OUTSIDE RECORDS SUMMARY | 2025-01-14 00:20 | XMS_ITS | Clinical Summary ---
Author Organization [facility] Address [address] [place] [address] Care Team Providers Care Environmental Services Floor Tech Name Role Phone Sebastian Nur DO Primary Care Provider [phone] Allergies Active Allergy Reactions Criticality Noted Date Comments Dabigatran Etexilate Mesylate Diarrhea,GI Upset 11/26/2024 Gas n bloating Prednisone Other (see comment) 01/04/2021 Sulfamethoxazole Rash Low 07/13/2020 Reaction: Rash, Trimethoprim Rash Low 07/13/2020 Reaction: Rash, Medications simvastatin 40 MG tablet Take 1 tablet (40 mg total) by mouth daily. 05/17/2020 Active chlordiazePOXID E 10 MG capsule TAKE 1 CAPSULE BY MOUTH EVERY 8 HOURS NEEDED FOR ANXIETY 01/30/2020 Active imipramine 10 MG tablet Take 2 tablets (20 mg total) by mouth nightly at bedtime. at bedtime 05/11/2020 Active Cholecalciferol (VITAMIN D) 50 MCG (2000 UT) Tab Take 1 tablet (2,000 Units total) by mouth daily. Active Potassium Gluconate 595 (99 K) MG Tab Take 595 mg by mouth 2 (two) times daily. Active nitroglycerin 0.[address] 1 tablet (0.4 mg total) under the tongue every 5 (five) minutes as needed for Chest Pain. Active magnesium oxide 250 MG tablet Take 2 tablets (500 mg total) by mouth every evening. Active Multiple Vitamin (ONE-A-DAY 55 PLUS OR) Take 1 tablet by mouth daily. Active losartan (COZAAR) 100 MG tablet Take 1 tablet (100 mg total) by mouth daily. 01/30/2023 Active amLODIPine (NORVASC) 2.5 MG tablet TAKE 1 TABLET BY MOUTH EVERY DAY 90 tablet 1 11/04/2024 Active carvedilol (COREG) 25 MG tablet TAKE 1 TABLET BY MOUTH TWICE A DAY 180 tablet 1 11/04/2024 Active rivaroxaban (XARELTO) 20 MG Tab tablet Take 1 tablet (20 mg total) by mouth daily with supper. Take with food 30 tablet 3 11/26/2024 Active Active Problems Problem Noted Date Diagnosed Date Coronary stent patent 07/01/2022 PAF (paroxysmal atrial fibrillation) ([facility]) 02/02/2021 Pure hypercholesterolemia 07/13/2020 Obesity (BMI 30-39.9) 07/13/2020 Snoring 07/13/2020 Basal cell carcinoma (BCC) of right forearm 08/11 Melanoma in situ of back ([facility]) 12/24 Atherosclerosis of coronary artery 07/30/2014 Overview (12/30/2021): Coronary atherosclerosis Essential hypertension Myocardial infarction ([facility]) Resolved Problems Problem Noted Date Diagnosed Date Resolved Date Pain and swelling of lower leg, left 12/30/2021 08/26/2024 Swollen leg 10/12/2021 08/22/2024 Encounters Date Type Department Care Team Description 12/24/2024 Telephone [facility] [address] Eboni Kidd MD Surgical Clearance 11/25/2024 Telephone [facility] [address] [address] Eboni Kidd MD Medication 10/21/2024 [facility] [address] [address] Eboni Kidd MD Refill Request (AMLODIPINE) 10/21/2024 [facility] [address] [address] Shavonne Domínguez, [facility] Medication Information (Eliquis cost) from Last 3 Months Immunizations Immunization Administration Dates Next Due Fluad influenza vaccine, Troy drivalent (aIIV4), Inactivated, adjuvanted, preservative free, 0.5 mL,IM use 06/13/2019 Family History Medical History Relation Comments Heart Attack Brother 1 Open Heart Brother 1 Prostate Cancer Father Stroke Maternal Grandmother Breast Cancer Mother Relation Status Comments Brother 1 Alive Brother 2 Alive Father (Age 70) Maternal Grandfather (Age 88) Maternal Grandmother (Age 68) Mother (Age 59) Paternal Grandfather (Age 79) Paternal Grandmother (Age 75) Sister Alive Social History Tobacco Use Types Packs/Day Years Used Date Smoking Tobacco: Former Cigarettes Smokeless Tobacco: Never Tobacco Cessation:Counseling Given: Not Answered Alcohol Use Standard Drinks/Week Comments Yes 0 [...] Sign Reading Time Taken Comments Blood Pressure 142/92 08/26/2024 10:37 AM FARMWORKER VEGETABLE Pulse 81 08/26/2024 10:37 AM FARMWORKER VEGETABLE Temperature 36.6 C (97.8 F) 07/01/2022 12:22 PM CDT Respiratory Rate - - Oxygen Saturation 96% 08/26/2024 10:37 AM FARMWORKER VEGETABLE Inhaled Oxygen Concentration - - Weight 131.5 kg (290 lb) 08/26/2024 10:37 AM FARMWORKER VEGETABLE Height 177.8 cm (5' 10 ) 08/26/2024 10:37 AM FARMWORKER VEGETABLE Body Mass Index 41.61 08/26/2024 10:37 AM FARMWORKER VEGETABLE Plan of Treatment Upcoming Encounters Date Type Department Care Team (Late st Contact Info) Description 03/03/2025 10:30 AM CDT [facility] [address] [place] [address] Eboni Kidd MD Three [facility] [address] [place], [place] [id number] Health Maintenance Due Date Last Done Comments ASCVD Statin 1945 Hepatitis C 1963 DTaP, Tdap and Td Vaccines ( 1 - Tdap) 1964 Pneumococcal Vaccine: 50+ Ye ars (1 of 2 - PCV) 1964 Zoster Vaccines (1 of 2) 1995 Annual Medicare Wellness Visit 2010 RSV Immunization or 60+ Years (1 - 1-dose 75+ series) 2020 COVID-19 Vaccine ( - 2023-2 5 season) 2024 Meningococcal B Vaccine Aged Out No l onger eligible based on patient's age to complete this topic Meningococcal Vaccine Aged Out No eli constanza eligible based on patient's age to complete this topic RSV Immunizations Under 20 Months Aged Out No longer eligible based on patient's age to complete this topic Insurance [facility] Care Teams Environmental Services Floor Tech Relationship Specialty [place] [address] [place] [id number] PCP - General INTERNAL MEDICINE 03/11/24
--- OUTSIDE RECORDS SUMMARY | 2025-01-14 00:20 | XMS_ITS | Encounter Summary ---
Author Organization [facility] Address [facility] [place] [address] Care Team Providers Care Ekg Monitor Tech Name Role Phone Moises Strickland MD Primary Care Provider [phone] Sebastian Nur DO Primary Care Provider [phone] Encounter Details Date Type Department Care Team (Late Contact Info) Description 07/14/2020 Abstract [facility] at [address] [address] Trenton Campos MA Social History Tobacco Use Types Packs/Day Years [...] Exposure Response Date Recorded In the last month, have you been in contact with someone who was confirmed or suspected to have Coronavirus / COVID-19? 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 documented as of this encounter Plan of Treatment Upcoming Encounters Date Type Department Care Team (Late st Contact Info) Description 03/03/2025 10:30 AM CDT [facility] [address] [place] [address] Eboni Kidd MD Three [facility] [address] [place] [address] documented as of this encounter Procedures Procedure Name Priority Date/Time Associated Diagnosis Comments HEMOGLOBIN, GLYCOSYLATED Routine 03/27/2024 THYROID STIM HORMONE TSH Routine 03/27/2024 CBC, MANUAL DIFF Routine 02/21/2024 COMPREHENSIVE METABOLIC PANEL Routine 01/03/2023 LIPID PANEL Routine 01/03/2023 CBC, MANUAL DIFF Routine 01/03/2023 THYROID STIM HORMONE TSH Routine 01/03/2023 FOLATE (OUTSIDE LAB) Routine 06/02/2021 CBC (OUTSIDE LAB) Routine 06/02/2021 VITAMIN B-12 Routine 06/02/2021 PROSTATE SPECIFIC ANTIGEN,TOTAL Routine 06/02/2021 COMPREHENSIVE METABOLIC PANEL Routine 06/02/2021 LIPID PANEL Routine 06/02/2021 HEMOGLOBIN, GLYCOSYLATED Routine 06/02/2021 THYROID STIM HORMONE TSH Routine 06/02/2021 FOLATE (OUTSIDE LAB) Routine 05/20/2020 CBC (OUTSIDE LAB) Routine 05/20/2020 VITAMIN B-12 Routine 05/20/2020 COMPREHENSIVE METABOLIC PANEL Routine 05/20/2020 BASIC METABOLIC PANEL Routine 05/20/2020 LIPID PANEL Routine 05/20/2020 LIPID PANEL Routine 05/20/2020 HEMOGLOBIN, GLYCOSYLATED Routine 05/20/2020 HEMOGLOBIN, GLYCOSYLATED Routine 05/20/2020 THYROID STIM HORMONE TSH Routine 05/20/2020 documented in this encounter Results * HEMOGLOBIN, GLYCOSYLATED (03/27/2024) Pathologist [facility] HGB A1C 5.6 % Default History Genericprovider LABORATORY Edited Result - Final * THYROID STIM HORMONE TSH (03/27/2024) Pathologist [facility] TSH 1.150 Default History Genericprovider LABORATORY Edited Result - Final * CBC, MANUAL DIFF (02/21/2024) Pathologist [facility] WBC 8.6 HGB 17.3 HCT 50.4 PLT 218 Default History Genericprovider LABORATORY Edited Result - Final * COMPREHENSIVE METABOLIC PANEL (01/03/2023) Pathologist [facility] SODIUM S/P/B 143 GLUCOSE 93 mg/dL AST 26 BUN 20 CREATININE S/P/B 1.11 0.7 - 1.3 CALCIUM S/P/B 9.4 POTASSIUM S/P/B 4.7 CHLORIDE S/P/B 104 ALT 37 GFR ESTIMATE 75 Narrative Resulting Agency Comment Default History Genericprovider LABORATORY Final Result * LIPID PANEL (01/03/2023) Pathologist [facility] CHOLESTEROL 120 TRIGLYCERIDES 136 HDL 43 LDL (CALCULATED) 53 Narrative Resulting Agency Comment Default History Genericprovider LABORATORY Final Result * CBC, MANUAL DIFF (01/03/2023) Pathologist [facility] WBC 7.0 HGB 17.9 HCT 51.5 PLT 226 Narrative Resulting Agency Comment us Default History Genericprovider LABORATORY Final Result * THYROID STIM HORMONE, TSH (01/03/2023) [facility] TSH 1.690 Narrative Resulting Agency Comment Default History Genericprovider LABORATORY Final Result * PROSTATE SPECIFIC ANTIGEN,TOTAL (06/02/2021) [facility] PSA <0.1 06/02/2021 us Doc [facility] LABORATORY Final Result * THYROID STIM HORMONE, TSH (06/02/2021) [facility] TSH 1.2 06/02/2021 us Doc [facility]AT[facility] Final Result * FOLATE (OUTSIDE LAB) (06/02/2021) [facility] FOLATE >20 06/02/2021 us Doc [facility] LAB-OUTSIDE/ABSTRACTED Final Result * VITAMIN B-12 (06/02/2021) [facility] VITAMIN B12 S/P/B 981 06/02/2021 us Doc [facility]AT[facility] Final Result * HEMOGLOBIN, GLYCOSYLATED (06/02/2021) [facility] HGB A1C 5.5 % 06/02/2021 us Doc [facility] Final Result * LIPID PANEL (06/02/2021) [facility] CHOLESTEROL 136 HDL 47 TRIGLYCERIDES 150 LDL (CALCULATED) 63 06/02/2021 us Doc [facility]ORAT[facility] Final Result * COMPREHENSIVE METABOLIC PANEL (06/02/2021) Pathologist [facility] SODIUM S/P/B 143 POTASSIUM S/P/B 4.7 CO2 22 CHLORIDE S/P/B 105 GLUCOSE 100 mg/dL CALCIUM S/P/B 9.3 BUN 17 CREATININE S/P/B 1.11 0.7 - 1.3 EGFR AFR. AMER. 75 <=90 EGFR NON-AFR. AMER. 65 <=90 ALKALINE PHOSPHATASE S/P/B 146 ALT 21 AST 18 BILIRUBIN TOTAL S/P/B 1.2 ALBUMIN S/P/B 4.6 3.5 - 5.0 TOTAL PROTEIN S/P/B 6.1 GLOBULIN 1.2 06/02/2021 Doc [facility]AT[facility] Final Result * CBC (OUTSIDE LAB) (06/02/2021) [facility] WBC 7.3 HGB 16.6 HCT 48.5 PLT 206 06/02/2021 Doc [facility] LAB-OUTSIDE/ABSTRACTED Final Result * LIPID PANEL (05/20/2020) Pathologist [facility] CHOLESTEROL Comment:error,deleted 05/20/2020 Default History Genericprovider LABORATORY Edited Result - Final * BASIC METABOLIC PANEL (05/20/2020) Pathologist [facility] SODIUM S/P/B Comment:error,deleted 05/20/2020 Default History Genericprovider LABORATORY Edited Result - Final * HEMOGLOBIN, GLYCOSYLATED (05/20/2020) Pathologist [facility] HGB A1C Comment:error,deleted 05/20/2020 Default History Genericprovider LABORATORY Edited Result - Final * LIPID PANEL (05/20/2020) Pathologist [facility] CHOLESTEROL 139 HDL 50 TRIGLYCERIDES 109 LDL (CALCULATED) 69 05/20/2020 us Doc [facility] Final Result * THYROID STIM HORMONE, TSH (05/20/2020) [facility] TSH 1.380 05/20/2020 us Doc [facility] Final Result * HEMOGLOBIN, GLYCOSYLATED (05/20/2020) [facility] HGB A1C 5.3 % 05/20/2020 us Doc [facility] Final Result * FOLATE (OUTSIDE LAB) (05/20/2020) [facility] FOLATE >20 >3.0 05/20/2020 us Doc [facility] LAB-OUTSIDE/ABSTRACTED Final Result * VITAMIN B-12 (05/20/2020) [facility] VITAMIN B12 S/P/B 1,118 232 - 1,245 05/20/2020 us Doc [facility] Final Result * COMPREHENSIVE METABOLIC PANEL (05/20/2020) [facility] SODIUM S/P/B 145 POTASSIUM S/P/B 4.8 CO2 26 CHLORIDE S/P/B 105 GLUCOSE 96 mg/dL CALCIUM S/P/B 9.6 BUN 22 CREATININE S/P/B 1.20 0.7 - 1.3 EGFR AFR. AMER. 68 <=90 EGFR NON-AFR. AMER. 56 <=90 ALKALINE PHOSPHATASE S/P/B 121 ALT 31 AST 25 BILIRUBIN TOTAL S/P/B 1.1 ALBUMIN S/P/B 4.7 3.5 - 5.0 TOTAL PROTEIN S/P/B 6.3 GLOBULIN 1.6 05/20/2020 us Doc [facility] Final Result * CBC (OUTSIDE LAB) (05/20/2020) WBC 6.9 HGB 16.0 HCT 48.1 PLT 237 05/20/2020 us Doc [facility] LAB-OUTSIDE/ABSTRACTED Final Result documented in this encounter Visit Diagnoses Not on filedocumented in this encounter Care Teams Ekg Monitor Tech Relationship Specialty Start Date End Date Moises Strickland MD [address] [place] [address] PCP - General INTERNAL MEDICINE 06/08/20 03/10/24 Sebastian Nur DO [address] [facility] [address] [place] [address] PCP - General INTERNAL MEDICINE 03/11/24 documented as of this encounter
--- OUTSIDE RECORDS SUMMARY | 2025-01-14 00:20 | XMS_ITS | Referral Summary ---
Author Organization [facility] [address] [facility] [address] Address [address] [place] [address] Care Team Providers Care Inventory And Pricing Associate Name Role Phone Moises Strickland MD Primary Care Provider [phone] Allergies Active Allergy Reactions Criticality Noted Date Comments Sulfamethoxazole Rash Reaction: Rash, Trimethoprim Rash Reaction: Rash, Medications nitroglycerin (NITROSTAT) 0.[address] 1 tablet (0.4MG) by sublingual route at the 1st sign of attack; may repeat every 5 min until relief; if pain persists after 3 tablets in 15 min, prompt medical attention is recommended 0 2 Active imipramine (TOFRANIL) 10 mg tablet take 2 tablet (20MG) by oral route every day 0 2 Active chlordiazePOXID E (LIBRIUM) 10 mg capsule take 1 capsule (10MG) by oral route 3 times every day 0 2 Active aspirin 81 mg tablet take 1 tablet (81MG) by oral route every day 0 2 Active simvastatin (ZOCOR) 40 mg tablet take 1 tablet (40MG) by oral route every day in the evening 90 3 2 Active lisinopril (PRINIVIL,ZESTR IL) 20 mg tablet take 1 tablet by oral route every day 0 2 Active Additional Information Patient taking differently: 40 mg, Reported on 09/12/2018 MULTIVIT-MIN/FO LIC/VIT K/LYCOP (ONE-A-DAY MEN'S 50 PLUS ORAL) Take by mouth daily. Active cholecalciferol (VITAMIN D-3) 2,000 unit tablet Take 2,000 Units by mouth daily. Active potassium gluconate 595 mg (99 mg) tablet Take 595 mg by mouth 2 (two) times a day. Active denis root, bulk, powder Take 550 mg by mouth 4 (four) times a day. Active metoprolol XL (TOPROL-XL) 50 mg 24 hr tablet TAKE 1 TABLET BY MOUTH EVERY DAY 90 tablet 2 9 Active Active Problems Problem Noted Date Diagnosed Date Basal cell carcinoma (BCC) of right forearm 08/11 Melanoma of back 08/28/2018 Atherosclerosis of coronary artery 07/30/2014 Overview (12/16/2016): Coronary atherosclerosis Social History Tobacco Use Types Packs/Day Years Used Date Smoking Tobacco: Never Smokeless Tobacco: Never Alcohol Use Standard Drinks/Week Comments Yes 0 (1 standard drink = 0.6 oz pur e alcohol) 2 beers every 3 months Sex and Gender Information Value Date Recorded Sex Assigned at Not on file Legal Sex 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 Gender Identity Not on file Sexual Orientation Not on file Last Filed Vital Signs Vital Sign Reading Time Taken Comments Blood Pressure 114/76 09/12/2018 10:32 AM ELECTROMYOGRAPHIC TECHNICIAN Pulse 89 09/12/2018 10:32 AM ELECTROMYOGRAPHIC TECHNICIAN Temperature - - Respiratory Rate - - Oxygen Saturation 95% 09/12/2018 10:32 AM ELECTROMYOGRAPHIC TECHNICIAN Inhaled Oxygen Concentration - - Weight 119.3 kg (263 lb) 09/12/2018 10:32 AM ELECTROMYOGRAPHIC TECHNICIAN Height 180.3 cm (5' 11 ) 09/12/2018 10:32 AM ELECTROMYOGRAPHIC TECHNICIAN Body Mass Index 36.68 09/12/2018 10:32 AM ELECTROMYOGRAPHIC TECHNICIAN Plan of Treatment Not on file Insurance [facility] MEDIC[facility] Address: [address] [address] [place] [address] [facility] MEDIC[facility] Address: [address] [address] [place] [address] Care Teams Inventory And Pricing Associate Relationship Specialty Start Date End Date Moises Strickland MD [address] [facility] [address] [place] [address] PCP - General Internal Medicine 07/12/17
--- OUTSIDE RECORDS SUMMARY | 2025-01-14 00:20 | XMS_ITS | Clinical Summary ---
Author Organization [facility] [address] [facility] [address] Address [address] [place] [address] Care Team Providers Care Die Casting Machine Setter Name Role Phone Moises Strickland MD Primary Care Provider [phone] Allergies Active Allergy Reactions Criticality Noted Date [...] coronary artery 07/30/2014 Overview (12/16/2016): Coronary atherosclerosis Surgical History Surgery Date Site/Laterality Comments OTHER SURGICAL HISTORY Coronary Artery Disease; NonSTEMI: PROSTATECTOMY Prostatectomy Medical History Medical History Date Comments Hx Other Medical Coronary Artery Disease; NonSTEMI Hypertension Hypertension Myocardial infarction (HCC) Myoc ardial infarction Hx Other Medical Dyslipidemia Depression Depression Family History Medical History Relation Name Comments Coronary artery disease Brother 2 Reena nary artery disease; Relation Name Status Comments Brother 1 Alive Brother 2 Social History Tobacco Use Types Packs/Day Years Used Date Smoking Tobacco: Never Smokeless Tobacco: Never Alcohol Use Standard Drinks/Week Comments Yes 0 (1 standard drink = 0.6 oz pur e alcohol) 2 beers every 3 months Sex and Gender Information Value Date Recorded Sex Assigned at Not on file Legal Sex Male 7:03 AM ADOPTION AGENT Gender Identity Not on file Sexual Orientation Not on file Obstetrics History Last Filed Vital Signs Vital Sign Reading Time Taken Comments Blood Pressure 114/76 09/12/2018 10:32 AM ADOPTION AGENT Pulse 89 09/12/2018 10:32 AM ADOPTION AGENT Temperature - - Respiratory Rate - - Oxygen Saturation 95% 09/12/2018 10:32 AM ADOPTION AGENT Inhaled Oxygen Concentration - - Weight 119.3 kg (263 lb) 09/12/2018 10:32 AM ADOPTION AGENT Height 180.3 cm (5' 11 ) 09/12/2018 10:32 AM ADOPTION AGENT Body Mass Index 36.68 09/12/2018 10:32 AM ADOPTION AGENT Plan of Treatment Not on file Insurance [facility] MEDICARE [facility] Address: [address] [place] [phone] [employer] MEDICARE ADVANTAGE [facility] Address: [address] [address] [place] [address] Care Teams Die Casting Machine Setter Relationship Specialty Start Date End Date Moises Strickland MD [address] [facility] [address] [place] [address] PCP - General Internal Medicine 07/12/17
--- OUTSIDE RECORDS SUMMARY | 2025-01-14 00:20 | XMS_ITS | Encounter Summary ---
Author Organization [facility] Address [address] [place] [address] Care Team Providers Care Production Dispatcher Name Role Phone Moises Strickland Primary Care Provider [phone] Encounter Details Date Type Department Care Team (Late st Contact Info) Description 08/08/2018 Lab Requisition [facility] [address] [place] [id number] Matias Curry [place] [address] Social History Tobacco Use Types Packs/Day Years Used Date Smoking Tobacco: Never Smokeless Tobacco: Never Alcohol Use Standard Drinks/Week Comments Yes 0 (1 standard drink = 0.6 oz pur e alcohol) Sex and Gender Information Value Date Recorded Sex Assigned at Not on file Legal Sex Male 5:27 PM FIRE EXTINGUISHER TESTER Gender Identity Not on file Sexual Orientation Not on file documented as of this encounter Plan of Treatment Not on file documented as of this encounter Procedures Procedure Name Priority Date/Time Associated Diagnosis Comments DERMATOPATHOLOGY Routine 08/07/2018 12:0 0 AM FIRE EXTINGUISHER TESTER documented in this encounter Results * DERMATOPATHOLOGY (08/07/2018 12:00 AM FIRE EXTINGUISHER TESTER) Case Report Dermatopathology Report Case: [id number] Authorizing Provider: Matias Curry MD Collected: 08/07/2018 12:00 AM Pathologist: Camilo Cortez MD Received: 08/08/2018 11:32 AM Specimens: A) - Skin, left upper chest below clavicle B) - Skin, right lower back 8 5:36 PM [facility] DERMATOPATHOLOGY [facility]ORAT[facility] Final Diagnosis Specimen A. SKIN, left upper chest below clavicle: JUNCTIONAL MELANOCYTIC PROLIFERATION; NOT PRESENT AT SAMPLED MARGIN (D48.5) (see microscopic description and comment) Specimen B. SKIN, right lower back: LENTIGINOUS MELANOCYTIC NEVUS, JUNCTIONAL TYPE, IRRITATED (JUNCTIONAL MELANOCYTIC NEVUS WITH ARCHITECTURAL DISORDER) (D22.5) 8 5:36 PM [facility] DERMATOPATHOLOGY [facility] Clinical History A-B: R/O Dys nevus 8 5:36 PM [facility] DERMATOPATHOLOGY [facility] Gross Description Specimen A: Received is one formalin filled container labeled with the patient's name and designated left upper chest below clavicle. The specimen consists of a shave biopsy measuring 10x9x1 mm. Jar 0. Specimen B: Received is one formalin filled container labeled with the patient's name and designated right lower back. The specimen consists of a shave biopsy measuring 8x7x1 mm. Jar 0. 8 5:36 PM [facility] DERMATOPATHOLOGY [facility] Microscopic Description Specimen A. SKIN, left upper chest below clavicle: Sections show a junctional melanocytic proliferation. There is a lentiginous proliferation of melanocytes between irregular nests. Scattered melanocytes show evidence of upward migration within the epidermis. The melanocytes are large and have a semaj cytoplasm. The melanocytes are highlighted by MART-1/Melan-A.This lesion is not present at the sampled margin of the specimen. COMMENT: While this lesion is favored to represent an irritated solar lentigo, an early melanoma in situ cannot be excluded. As this lesion appears completely excised in the sampled sections, clinicopathologic correlation is recommended as to complete removal. Specimen B. SKIN, right lower back: This is a junctional nevus. There is melanin pigment in the stratum corneum. There is architectural disorder characterized by a lentiginous proliferation of melanocytes between irregular nests of cells along the dermal-epidermal junction. There is underlying fibroplasia of the papillary dermis. (Junctional Joshua's Nevus or Junctional Dysplastic Nevus) 8 5:36 PM [facility] DERMATOPATHOLOGY [facility]ORAT[facility] Disclaimer An external and internal positive and negative controls are appropriate for the histochemical, immunohistochemical and immunofluorescence stain(s) in this case (if any), except where stated explicitly. The performance characteristics of the stain(s) cited in this report were developed and its performance characteristic determined by the Dermatopathology Laboratory at [facility]. These tests need not be, and therefore are not, approved by the [place] Food and Drug Administration. The tests are used for clinical purposes. Billing Codes Specimen Charges Stain Charges 44300 09313 1 1 82288 1 8 5:36 PM FIRE EXTINGUISHER TESTER DERMATOPATHOLOGY LABORATORY Embedded Images 8 5:36 PM FIRE EXTINGUISHER TESTER DERMATOPATHOLOGY LABORATORY Pathology/Cytology TISSUE SPECIMEN FROM SKIN / Unknown 08/07/2018 08/08/2018 11:32 AM FIRE EXTINGUISHER TESTER Miscellaneous samples (specimen) TISSUE SPECIMEN FROM SKIN / Unknown 08/07/2018 08/08/2018 11:32 AM FIRE EXTINGUISHER TESTER Matias Curry MD LAB - PATHOLOGY/CYTOLOGY ORD ERABLES Final Result DERMATOPATHOLOGY LABORATORY [facility] - Department of Dermatology [address] [place] [address], 5th Floor Lab [address] [phone] documented in this encounter Visit Diagnoses Not on filedocumented in this encounter Care Teams Production Dispatcher Relationship Specialty Start Date End Date Moises Strickland DO [address] [place] [address] PCP - General 04/10/17 documented as of this encounter
[2025-01-14] MEDS: LACTATED RINGERS 1,000 ML 30 ML IV CONT (09:00)
--- NOTE | 2025-01-14 10:04 | WPDANESEPPF ---
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 Patient Data Age: 79 Gender: M Height: 1.8 m Weight: 132.1 kg Last Vital Signs Temp 97.9 F 01/14/25 09:00 Pulse 80 01/14/25 09:00 Resp 14 01/14/25 09:00 BP 133/87 01/14/25 09:00 Pulse Ox 97 01/14/25 09:00 O2 Del Method Room Air 01/14/25 09:00 Allergies Allergy/AdvReac Type Severity Reaction Status Date / Time sulfamethoxazole Allergy Intermediate HIVES Verified 01/14/25 09:22 trimethoprim Allergy Mild Rash Verified 01/14/25 09:22 prednisone AdvReac Severe Cramping Verified 01/14/25 09:22 of the Muscles persimmon Allergy Severe Anaphylaxis Uncoded 01/14/25 09:22 Home Medications ?Medication ?Instructions ?Recorded ?Confirmed ?Type cholecalciferol (vitamin D3) 50 50 mcg PO DAILY 08/13/19 01/14/25 History mcg (2,000 unit) capsule multivitamin (Multiple Vitamins 1 tablet PO DAILY 08/13/19 01/14/25 History tablet) nitroglycerin 0.4 mg sublingual 0.4 mg sublingual Q5M PRN Angina 08/13/19 12/27/24 History tablet potassium gluconate 595 mg (99 mg) 1,190 mg PO DAILY 08/13/19 01/14/25 History tablet aspirin 81 mg tablet,delayed 81 mg PO DAILY 01/07/22 01/14/25 History release (Adult Aspirin Regimen) magnesium oxide 500 mg PO DAILY 01/24/22 01/14/25 History chlordiazepoxide HCl 10 mg capsule 10 mg PO BID PRN anxiety #180 caps 05/16/24 12/27/24 Rx simvastatin 40 mg tablet 40 mg PO DAILY #90 tabs 07/29/24 12/27/24 Rx amlodipine 2.5 mg tablet 2.5 mg PO DAILY 08/07/24 01/14/25 History imipramine HCl 10 mg tablet 20 mg (2 x 10 mg) PO .hs #180 tabs 11/04/24 12/27/24 Rx losartan 100 mg tablet 100 mg PO DAILY #90 tabs 11/04/24 12/27/24 Rx carvedilol 25 mg tablet 25 mg PO Q12H 12/27/24 01/14/25 History Patient hx anesthesia problems: none Family hx anesthesia problems: none Results Review: All pre-operative results and documents have been reviewed as part of the pre-operative evaluation. [facility] Past Medical History Medical History Cancerous red or purple patches on skin Hypertension Heart disease Arthritis Anxiety Family History Family History Father Malignant neoplasm of prostate Patient's father is Mother Family history of malignant neoplasm of breast in first degree relative Patient's mother is Sibling Family history of malignant neoplasm of breast in first degree relative Family history of malignant melanoma Family history of malignant neoplasm of skin Other Cerebrovascular accident Family history of cardiovascular disease Family history of kidney disease Hypertension Social History Social History Smoking status: Never smoker Second hand tobacco smoke exposure: No Alcohol intake: current Drinks per week: 2 Alcohol use details: Beer w pizza weekly Substance use: never Substance use type: does not use Other substance usage details: CBD takes every 3 days and helps w arthritis pain Lack of Transportation: No Lack of Food: Never True Current Housing: I Have Housing Concerned About Future Housing: No Difficulty Paying Gas/Electric Bills: No Difficulty Paying for Meds: No Currently Unemployed: No Education: Associate Degree Difficulty w/ Childcare or Family Care: No Living arrangements: with family Additional living arrangements comments: Spiritual care concerns: No Anes - Eval Final PreProcedure Day of Procedure 01/14/25 10:04 Patient weight: morbidly obese Lungs: normal air movement Airway: Mallampati scale class II and special considerations (Upper incisors are chipped. ) Neurological: alert and oriented Last oral intake: >/= 8 hours ASA classification: III Emergent: no Anesthetic plan: proceed Anesthesia type and monitoring: general ETT and standard monitoring Results Review: All pre-operative results and documents have been reviewed as part of the pre-operative evaluation. 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 He is currently only on ASA due to cost. Pt can walk short distances, no cp or sob, limited by back pain. Informed Consent: The patient's anesthetic plan and its attendant risks and benefits were discussed with the patient/family/POA. Questions were solicited and answers provided to the satisfaction of the patient/family/POA.
--- NOTE | 2025-01-14 10:12 | WPDHPUPDATE1 ---
History and Physical Update Update Date/Time: 01/14/25 10:12 History and Physical has been reviewed, including an updated exam of the patient. There are NO changes in the patient's condition. Risks, benefits, and alternatives have been discussed and questions answered. Patient agrees to proceed with procedure.
--- NOTE | 2025-01-14 10:19 | W.PM.PROC2 ---
Procedure Note - Detailed Date of Procedure 01/14/25 Pre-op Diagnosis lumbar spinal stenosis w/neuro soila Post-op Diagnosis Same Procedure Performed Bilateral Minimally Invasive Lumbar Decompression (MILD) at L3-4, L4-5 under Fluoroscopic Guidance. Surgeon Morales Westfall MD Manager Local None Anesthesia Other ([Moderate IV sedation/MAC] with local anesthetic infiltration in the prone position) Description of Procedure INFORMED CONSENT: Risks, benefits, and alternatives to the procedure were discussed in detail with the patient who expressed explicit understanding and consent to proceed. Risks discussed with the patient included but were not limited to risk of serious local or systemic infection, bleeding/bruising, epidural hematoma, dural puncture or tear resulting in CSF leak and acute or chronic post-dural puncture headache, scarring/deformity, immediate or delayed allergic reaction, decreased mobility, failure to treat pain, inadvertent neurologic injury resulting in increased pain, weakness/paralysis or numbness, inadvertent organ injury, need for additional surgery, allergic reaction, heart attack, stroke, seizure, coma, . Anesthetic risks were also briefly discussed by myself and the ophthalmologist retina specialist. The patient expressed understanding and consent to proceed, agreeing that potential benefits outweigh risk of harm. All materials required for the procedure were immediately available prior to procedure start. Site and side were confirmed with the patient, compared carefully to the patient chart and consent, and marked prior to transport to the operating room. Appropriate time out procedure was performed per protocol prior to procedure start. PROCEDURE IN DETAIL: The patient was brought to the operative suite and placed in the supine position. Appropriate ASA standard monitors were attached. Anesthesia was initiated without difficulty or event. Eyes were protected. Patient was transitioned to the prone position. Pressure points were padded with joints in neutral position. When appropriate, breasts and genitals were evaluated and protected. Eyes were checked and were free from undue pressure. Skin overlying the procedure site was marked with sterile marker. Surgical area was prepared in a typical sterile fashion with ChloraPrep and allowed to dry for at least 3 minutes prior to sterilely draping the surgical site. The lumbar spine was identified in the AP fluoroscopic view with slight cephalad tilt perfectly aligning the endplates at the targeted levels with spinous processes bisecting the transpedicular plane. After identifying the intended incision site approximately 1.5 levels inferior to the level of interest, the area was anesthetized by infiltration with no more than 10ml of a 1:1 admixture of 0.5% PF bupivacaine with epinephrine and 2% PF lidocaine with epinepherine via a 27-gauge needle after negative aspiration. A 22-gauge spinal needle was used to provide additional and adequate local anesthesia to the level of the interspinous ligament, ligamentum flavum and the periosteum of the lamina at the intended treatment levels. In the AP view, a #11 scalpel blade was used to create a single stab incision at the intended incision site on the targeted side. The Vertos MILD kit was opened and the included cannula and trocar assembly was advanced through the incision to contact the midportion of the right lamina just adjacent to the spinous process at L5. Once seated, the lateral view was used to gauge depth demonstrating the most anterior tip of the trocar posterior to the epidural space at all times. The group art supervisor-provided cannula stabilizer was placed over the trocar flush to the patient's lumbar flank. Cannula obturator with handle was removed. Included depth guide was then attached to the insertion port on the cannula and set to an intitial depth of 15 mm. The bone rongeur was advanced to the depth of the lumbar lamina at the targeted level. Depth gauge was then adjusted allowing rongeur tip to advance in the contralateral oblique view to the anterior border of the superior and inferior lamina at the respective intervertebral foramen. Multiple passes of the rongeur were used in the contralateral oblique view to remove single small portions of ligament and bone in a 360-degree distribution, approximately 3-5 passes on each lamina, until appropriate access to the superior and inferior attachments of the ligamentum flavum was created at the surgical level right L4-5. Each individual portion of bone removed was extracted, collected and discarded. Rongeur was removed and replaced with a tissue sculpter which was deployed from inferior to superior in the contralateral oblique view to delaminate the ligamentum flavum at the intended level with serial groupings of three passes each, 6-9 total per side treated. Tissue extracted was discarded. At no point did the rongeur or tissue sculpter violate the anterior border of the ligament as evidenced by intact interface at the ligament/epidural border . The same procedure was repeated in the exact same fashion, utilizing the initial stab incision, to effectively debulk the ligamentum flavum and decompress the central spinal canal on the right at L3-4, with similar results and no evidence of complication. The same exact procedure was then repeated in the exact same fashion, utilizing a new stab incision on the contralateral side, to effectively debulk the ligamentum flavum and decompress the central spinal canal on the left at L3-4, L4-5. Bone and tissue sculpters were withdrawn, obturator replaced and trocar removed in the lateral view, entirely and without difficulty. Hemostasis was obtained and confirmed. Benzoin was placed around the incision site(s) and Steri-Strips were placed in a larry-crossing fashion across the wound(s), which were then covered with Telfa dressing and Tegaderm. The patient was converted to the supine position and transported to the recovery area having tolerated the procedure well with no evidence of complication. The patient was instructed to minimize weightbearing activity, including ambulation, for 48 hours, and to avoid bending, twisting at the waist, overhead work, reaching and lifting, pushing or pulling greater than 5-10 lbs for 48 hours with subsequent return to normal activity as tolerated. The patient is to maintain current dressing for 48 hours, then can remove the original dressing, leaving steri-strips in place until they come off on their own or are removed by their provider. Once removing the outer bandage, the patient will cover the incision with clean gauze and paper tape as needed, changing daily or when soiled. The patient understands they should avoid soaking or submerging the incision for 1 week and can resume showers after 48 hours. Instructions were provided to the patient in both verbal and written form, which the patient obtained, reviewed and signed prior to discharge. The patient was instructed to watch for signs of infection including fevers, chills, night sweats, severe headache, neck stiffness, new neurologic deficit, bowel or bladder changes, increased pain, discharge, bleeding, swelling, opening of or unusual warmth at the incision site. They are to call our office or report directly to the Emergency Department immediately should there be any signs/symptoms of complications such as the above or any other urgent/emergent changes in their condition. COMMENTS: None. COMPLICATIONS: None. DRAINS/PACKING: None. SPECIMEN: None. ESTIMATED BLOOD LOSS: 10 mL. IV FLUIDS: On chart. CONTRAST WASTED: 0 ml of Isovue 300M. Pathology None sent Complications No immediate complications Condition Stable Disposition PACU [facility] Billing Surgery - Charge Forward: Surgery Billing
[2025-01-14] MEDS: ceFAZolin 3 GM/D5W 100 ML 100 ML IVPB (10:30)
[2025-01-14] MEDS: LIDOCAINE 1% LOCAL INJ 10 ML VIAL INFILTRATE (10:46)
[2025-01-14] MEDS: BUPIVACAINE/EPINEPHRINE 0.5% 50 ML VIAL 10 ML INFILTRATE (10:46)
== END 2025-01-14 12:48 | disposition home or self-care (01) ==
PROVIDERS: PCP Internal Medicine; Visit Provider Anesthesiology Pain Medicine
PROC: (CPT 0275T; principal; 2025-01-14 10:30)
DX: M48.062 Spinal stenosis, lumbar region with neurogenic claudication (principal); M47.817 Spondylosis without myelopathy or radiculopathy, lumbosacral region; G89.29 Other chronic pain; E66.01 Morbid (severe) obesity due to excess calories; Z68.41 Body mass index [BMI] 40.0-44.9, adult; Z00.6 Encounter for examination for normal comparison and control in clinical research program
CPT/HCPCS: 0275T; 99199; C1889; J0330; J0690; J1100; J2003; J2405; J2704; J7120